=== PATIENT | female | born 1960 | race Caucasian/White ===

== ENCOUNTER → 2016-10-07 | Outpatient (CLI) | payer OTHER ==
[~2016-10-07] MED LIST: LISI2.5T59 PO
--- NOTE | 2016-10-07 10:01 | PN ---
Date/Time of Note Date/Time of Note DATE: 10/07/16 TIME: 09:55 24 hour Interval Summary The patient presents today for a follow-up evaluation on her bilateral knees. We last saw her about 6 months ago at which time she underwent bilateral Monovisc injections she has been having good symptomatic relief and is here today for repeat injections. She denies any adverse reactions from her previous injection. She continues to have bilateral knee pain and discomfort with ambulation. She denies any fevers chills erythema or warmth. She is here today for bilateral Monovisc injections. Physical Exam On exam today, she is alert and oriented 4, and in no acute distress. She walks with a normal gait. Exam of bilateral knees demonstrates 2+ patellofemoral crepitus. Varus and valgus forces are stable. There is no erythema or warmth noted. Range of motion is 0-120. There is no tenderness along the medial or lateral joint lines. There is tenderness bilaterally along the medial and lateral patellar facets. Compartments are otherwise soft. She is neurovascularly intact distally. VTE Prophylaxis VTE Prophylaxis Intervention: ambulation Lines/Catheters IV Catheter Type: Rubi in Place: No Assessment/Plan Chief Complaint/Hosp Course Bilateral knee osteoarthritis Problems: Assessment/Plan The patient underwent bilateral Monovisc injections to her knees today successfully. She was advised to modify her activity, take anti-inflammatories , and apply ice to her knees. We will see her back on an as-needed basis. She is to call the office ahead of time if she would like to repeat the injections. She understands that at some point she needs to consider surgical intervention. The procedure was fully explained to the patient and informed consent was obtained prior to the start of procedure. There was prepped and draped in sterile fashion using Betadine. Local anesthesia was achieved using ethyl chloride to anesthetize the superolateral aspect of bilateral knees. 4 cc of Monvisc was injected intra-articularly to bilateral knees. The patient tolerated the procedure well. A sterile bandage was applied. All questions and concerns were addressed at the time of procedure. Medications Medications Home Meds Reported Medications Lisinopril* (Lisinopril*) Unknown Strength Tablet, PO DAILY, TAB 11/19/14 SHANE JONES PA-C Oct 07, 2016 10:00
== END | disposition home or self-care (01) ==
LOC: HKI 09:02
PROVIDERS: ATTEND Orthopaedic Surgery
DX: M17.0 Bilateral primary osteoarthritis of knee (principal)

== ENCOUNTER 2017-02-24 10:15 | Emergency (ER) | payer OTHER ==
[~2017-02-24] VITALS: Wt 93.5 kg
[2017-02-24] MEDS ORDERED: ONDANSETRON 4 MG INJ IV STA (11:10)
[2017-02-24] MEDS ORDERED: KETOROLAC 30 MG INJ IV STA (11:10)
[2017-02-24 11:41] LABS: ADD UMIC NO; UR ASCORBIC ACID NEGATIVE (NEGATIVE); UR BILIRUBIN (Dip) NEGATIVE (NEGATIVE); UR BLOOD (Dip) NEGATIVE (NEGATIVE); UR CLARITY CLEAR (CLEAR); UR COLOR STRAW (YELLOW); UR GLUCOSE (Dip) NEGATIVE (NEGATIVE); UR KETONES (Dip) NEGATIVE (NEGATIVE); UR LEUKOCYTE ESTERASE (Dip) NEGATIVE Leu/ul (NEGATIVE); UR NITRITE (Dip) NEGATIVE (NEGATIVE); UR SPECIFIC GRAVITY (Dip) 1.015 (1.003-1.030); UR TOTAL PROTEIN (Dip) NEGATIVE (NEGATIVE); UR UROBILINOGEN (Dip) NEGATIVE (NEGATIVE)
[2017-02-24 11:51] LABS: BASOPHILS % 0.6 % (0.0-2.0); EOSINOPHILS # 0.2 10^3/ul (0.0-0.5); EOSINOPHILS % 4.9 % (0.0-7.0); HEMATOCRIT 36.5 % (37.0-47.0); HEMOGLOBIN 12.4 g/dl (12.0-16.0); LYMPHOCYTES # 1.4 10^3/ul (0.8-2.9); LYMPHOCYTES % 29.4 % (15.0-51.0); MEAN CORPUSCULAR HEMOGLOBIN 29.5 pg (29.0-33.0); MEAN CORPUSCULAR VOLUME 86.7 fl (82.0-101.0); MEAN PLATELET VOLUME 10.4 fl (7.4-10.4); MONOCYTE # 0.4 10^3/ul (0.3-0.9); MONOCYTES % 8.4 % (0.0-11.0); NEUTROPHIL # 2.8 10^3/ul (1.6-7.5); NEUTROPHILS % 56.5 % (39.0-77.0); PLATELET COUNT 255 10^3/UL (140-415); RED BLOOD COUNT 4.21 10^6/ul (4.20-5.40); RED CELL DISTRIBUTION WIDTH 12.6 % (11.5-14.5); WHITE BLOOD COUNT 4.9 10^3/ul (4.8-10.8)
--- NOTE | 2017-02-24 12:06 | RADRPT ---
PROCEDURE: XR Chest. CLINICAL INDICATION: Chest pain status post fall TECHNIQUE: AP Portable chest. COMPARISON: 08/01/2013 chest x-ray FINDINGS: The soft tissues and bones are normal. No focal infiltrates, masses, or effusions are noted. The m ediastinum and heart are remarkable for mild vascular calcifications of the thoracic aorta with norm al size heart.. No pneumothorax is present. IMPRESSION: 1. No radiographic evidence for acute cardiopulmonary disease 2. Mild atherosclerotic vascular disease RPTAT: HDC .Rosa Egan MD, MD Date Time Electronically viewed and signed by .Rosa Egan MD, MD on 02/24/2017 12:06 .C/
--- NOTE | 2017-02-24 12:06 | RADRPT ---
PROCEDURE: XR Lumbar Spine. CLINICAL INDICATION: Status post fall. Back pain. Trauma. TECHNIQUE: X-ray of the lumbar spine were performed including AP, lateral, and coned L5-S1 views w as performed. COMPARISON: No prior studies are available for comparison. FINDINGS: SEGMENTATION: There are 5 non-rib bearing lumbar vertebral bodies. LORDOSIS: Within normal limits. VERTEBRAL BODY HEIGHTS: Maintained without evidence of compression fracture. There is an age indeter minate but probably chronic anterior superior L2 endplate fracture. ALLIGNMENT: There is trace retrolisthesis of L1-L2. DISCS: There is moderate disc space narrowing at L1-L2. OSSEOUS STRUCTURES: There is no destructive osseous lesion. SACRUM: The bilateral sacroiliac joints are intact. IMPRESSION: Age indeterminate but probably chronic anterior superior L2 endplate fracture. No evidence of compression fracture. Trace retrolisthesis of L1-L2. Further findings as detailed above. Consider noncontrast CT of the lumbar spine given history of trauma as clinically warranted. RPTAT: HVF .Maxx Womack MD, Date Time Electronically viewed and signed by .Maxx Womack MD, on 02/24/2017 12:06 .F/
[2017-02-24 12:14] LABS: ALBUMIN/GLOBULIN RATIO 1.14; BILIRUBIN,INDIRECT 0.2 mg/dl (0-1.1); BILIRUBIN,TOTAL 0.2 mg/dl (0.2-1.3); CALCIUM 9.9 mg/dl (8.4-10.2); CREATININE 0.87 mg/dl (0.44-1.00); POTASSIUM 3.9 mmol/L (3.5-5.1); TOTAL PROTEIN 7.5 g/dl (6.1-8.1)
--- NOTE | 2017-02-24 12:25 | RADRPT ---
PROCEDURE: Right upper quadrant ultrasound CLINICAL INDICATION: Abdominal pain TECHNIQUE: Multiple real-time images were acquired of the patient's abdomen and right retroperiton eum utilizing a high resolution transducer. COMPARISON: None FINDINGS: The liver is increased in echogenicity and measures 18.9 cm. No focal hepatic masses are seen. The gallbladder is physiologically distended. There is stones and sludge identified within the gallbla dder. There is borderline thickening of the gallbladder wall. No pericholecystic fluid is seen. The intra and extrahepatic bile ducts are normal in caliber. The common bile duct measures 5.3 mm. Midline images demonstrate the pancreas head to be normal in echogenicity without obvious inflammato ry change. The body and tail are suboptimally seen. Survey views of the right kidney demonstrate no evidence of hydronephrosis or renal calculi. The ri ght kidney measures 11.7 cm. IMPRESSION: 1. Cholelithiasis. There is borderline thickening of the gallbladder wall. No pericholecystic fluid seen. 2. No biliary duct dilatation. 3. Fatty change of the liver with focal areas of sparing in the gallbladder fossa. . 4. Pancreas suboptimally seen RPTAT: HH .Pradeep Benitez MD, Date Time Electronically viewed and signed by .Pradeep Benitez MD, on 02/24/2017 12:24 .W/
--- NOTE | 2017-02-24 13:13 | RADRPT ---
PROCEDURE: CT Lumbar Spine. CLINICAL INDICATION: Back pain. Status post fall. TECHNIQUE: Noncontrast CT of the lumbar spine was performed with multiplanar reformatted images gen erated from the axial acquired data. The administered radiation dose was CTDI vol = 37.1 mGy, DLP = 1176.17 mGy-cm. One or more of the following dose reduction techniques were used: Automated exposur e control, Adjustment of the mA and/or kV according to patient size, or Use of iterative reconstruct ion technique. DICOM images are available. COMPARISON: There are no similar studies submitted for comparison. X-ray of the lumbar spine from e same day. FINDINGS: There is normal lumbar lordosis. The vertebral body heights are maintained. There is no destructive osseous lesion. There is no acute fracture. There is an ossific fragment with mild deformity of the anterior superi or L2 endplate which is chronic. T12-L1 : There is mild disc space narrowing. There is 1 mm broad-based disc bulge and mild bilateral facet arthropathy without spinal canal or bilateral foraminal stenosis. L1-L2 : There is moderate to severe disc space narrowing. There is trace retrolisthesis with a 2 mm broad-based disc bulge with mild bilateral facet arthropathy without spinal canal stenosis. There is mild to moderate right without left foraminal stenosis. L2-L3 : There is a 2 mm broad-based disc bulge and mild bilateral facet arthropathy and ligamentum f lavum infolding without canal stenosis. There is mild to moderate right without left foraminal steno sis. L3-L4 : There is a 2 mm broad-based disc bulge and mild bilateral facet arthropathy without spinal c anal stenosis. There is mild to moderate bilateral foraminal stenosis. L4-L5 : There is a 2 mm circumferential disc bulge with moderate bilateral facet arthropathy without spinal canal stenosis. There is moderate right without left foraminal stenosis. L5-S1 : There is mild disc space narrowing. There is a 2 mm circumferential disc bulge asymmetric to the left with moderate bilateral facet arthropathy without spinal canal stenosis. There is mild lef t without right foraminal stenosis. The sacroiliac joints are intact. Gallstones are noted. IMPRESSION: 1. No acute fracture. 2. Ossific fragment with mild deformity of the anterior superior L2 endplate which is chronic. 3. Mild to moderate degenerative changes without nerve root impingement. 4. Cholelithiasis. Further findings as detailed above. RPTAT: HVF .Maxx Womack MD, Date Time Electronically viewed and signed by .Maxx Womack MD, on 02/24/2017 13:13 .F/
[2017-02-24] MEDS ORDERED: TRAM50TA2 PO (13:25)
[2017-02-24] MEDS ORDERED: IBUP-1542 PO (13:25)
--- NOTE | 2017-02-24 13:33 | ERD ---
ER Documentation Chief Complaint Chief Complaint UPPER BACK PAIN S/P [facility] FALL LAST NIGHT, NO KO HPI 56-year-old female mechanical fall last night and fell backwards on her upper back. She felt okay yesterday but today is having worsening upper back pain. She denies any shortness of breath, hemoptysis. Patient is also having anterior abdominal discomfort which she feels is related to her back pain. She has history of gallstones is a concern her gallstones may be causing her back pain. She denies any vomiting, fevers, urinary complaints. ROS All systems reviewed and are negative except as per history of present illness. Medications Home Meds Active Scripts Ibuprofen* (Motrin*) 600 Mg Tab, 600 MG PO Q6, #20 TAB Prov:CHERELLE MAYS MD 02/24/17 Tramadol HCl (Tramadol HCl) 50 Mg Tablet, 50 MG PO Q4 Y for PAIN, #20 TAB Prov:CHERELLE MAYS MD 02/24/17 Reported Medications Lisinopril* (Lisinopril*) Unknown Strength Tablet, PO DAILY, TAB 11/19/14 Allergies Allergies: Coded Allergies: acetaminophen (Verified Allergy, Unknown, 02/24/17) codeine (Verified Allergy, Unknown, 02/24/17) hydrocodone (Verified Allergy, Unknown, 02/24/17) PMhx/Soc History of Surgery: Yes (APPY, PARTIAL HYST, FIBROIDS, UTERINE RECONST, R BREAST LUMPECTOMY) Anesthesia Reaction: No Hx Neurological Disorder: No Hx Respiratory Disorders: No Hx Cardiac Disorders: Yes (HTN ) Hx Psychiatric Problems: No Hx Miscellaneous Medical Probl: No Hx Alcohol Use: Yes (OCCASIONALLY) Hx Substance Use: No Hx Tobacco Use: Yes Smoking Status: Never smoker Physical Exam Vitals Vital Signs Date Time Temp Pulse Resp B/P Pulse Ox O2 Delivery O2 Flow Rate FiO2 02/24/17 10:18 98.3 81 17 159/75 98 Physical Exam Const: [], Uncomfortable but no apparent distress. Head: Atraumatic Eyes: Normal Conjunctiva ENT: Normal External Ears, Nose and Mouth. Neck: Full range of motion..~ No meningismus. Resp: Clear to auscultation bilaterally Cardio: Regular rate and rhythm, no murmurs Abd: Soft, non tender, non distended. Normal bowel sounds Skin: No petechiae or rashes Back: No midline or flank tenderness or tenderness primarily in the right L2- L3 area. Some mild right upper quadrant tenderness present deformities, skin changes. Ext: No cyanosis, or edema Neur: Awake and alert Psych: Normal Mood and Affect Result Diagram: 02/24/17 1120 02/24/17 1120 Results 24 hrs Laboratory Tests Test 02/24/17 11:15 02/24/17 11:20 Urine Color STRAW Urine Clarity CLEAR Urine pH 6.0 Urine Specific [place] 1.015 Urine Ketones NEGATIVEmg/dL Urine Nitrite NEGATIVEmg/dL Urine Bilirubin NEGATIVEmg/dL Urine Urobilinogen NEGATIVEmg/dL Urine Leukocyte Esterase NEGATIVELeu/ul Urine Hemoglobin NEGATIVEmg/dL Urine Glucose NEGATIVEmg/dL Urine Total Protein NEGATIVEmg/dl White Blood Count 4.910^3/ul Red Blood Count 4.2110^6/ul Hemoglobin 12.4g/dl Hematocrit 36.5% Mean Corpuscular Volume 86.7fl Mean Corpuscular Hemoglobin 29.5pg Mean Corpuscular Hemoglobin Concent 34.0g/dl Red Cell Distribution Width 12.6% Platelet Count 99327^3/UL Mean Platelet Volume 10.4fl Neutrophils % 56.5% Lymphocytes % 29.4% Monocytes % 8.4% Eosinophils % 4.9% Basophils % 0.6% Nucleated Red Blood Cells % 0.0/100WBC Neutrophils # 2.810^3/ul Lymphocytes # 1.410^3/ul Monocytes # 0.410^3/ul Eosinophils # 0.210^3/ul Basophils # 0.010^3/ul Nucleated Red Blood Cells # 0.010^3/ul Sodium Level 143mmol/L Potassium Level 3.9mmol/L Chloride Level 104mmol/L Carbon Dioxide Level 28mmol/L Anion Gap 15 Blood Urea Nitrogen 25mg/dl Creatinine 0.87mg/dl Glucose Level 101mg/dl Calcium Level 9.9mg/dl Total Bilirubin 0.2mg/dl Direct Bilirubin 0.00mg/dl Indirect Bilirubin 0.2mg/dl Aspartate Amino Transf (AST/SGOT) 22IU/L Alanine Aminotransferase (ALT/SGPT) 47IU/L Alkaline Phosphatase 56IU/L Total Protein 7.5g/dl Albumin 4.0g/dl Globulin 3.50g/dl Albumin/Globulin Ratio 1.14 Lipase 200U/L Current Medications Medications (Trade) Dose Ordered Sig/Mert Route PRN Reason Start Time Stop Time Status Last Admin Dose Admin Ondansetron HCl (Zofran Inj) 4 mg ONCE STAT IV 02/24/17 11:10 02/24/17 11:12 DC 02/24/17 11:23 Ketorolac Tromethamine (Toradol) 30 mg ONCE STAT IV 02/24/17 11:10 02/24/17 11:12 DC 02/24/17 11:22 Procedures/MDM Right upper quadrant ultrasound shows gallstones with borderline bladder wall thickening but no absolute signs of cholecystitis. CBC and CMP and lipase showed no acute abnormalities. Urine is negative for infection, glucose, blood. Chest X-ray 1V Interpreted by me: Soft Tissue: No acute abnormalities Bones: No acute abnormalities Mediastinum/Cardiac Silhouette/Lungs: [No acute abnormalities] impression have normal 1 view chest x-ray X-ray LS-Spine 3V Interpreted by me: Bones: Possible endplate fracture of L2 Joints: [No dislocation] Foreign body: [None]. Possible endplate fracture of L2. Uncertain whether old or new. CT recommended. CT shows likely chronic appearing C2 endplate fracture. Without appreciable acute abnormalities. Patient was given Toradol 30 mg IV was stable amatory throughout the ED course. Presents with upper back pain mild abdominal pain after mechanical fall yesterday without evidence of cholecystitis, acute fracture, dislocation, choledocholithiasis, acute abdomen, UTI or additional emergent causes of presenting complaints. She will treated with tramadol and ibuprofen and further observation at home primary care follow-up and return precautions. The patient was stable with no new complaints during the ER course. Clinically, there is no current evidence to suggest meningitis, sepsis, acute abdomen, pneumonia, acute coronary syndrome, pulmonary embolism, or any other emergent condition appearing to require further evaluation or hospitalization. The patient should certainly return for any new or worsening symptoms per the aftercare instructions. They should otherwise follow-up with her primary care doctor for reevaluation this week. In the area of possible fracture seen in the area of patient's pain CT lumbar spine was done which shows a chronic appearing Departure Diagnosis: Primary Impression: Injury of back Encounter type: initial encounter Qualified Code: S39.92XA - Injury of back , initial encounter Condition: Stable Patient Instructions: Gallstones, Back Sprain/Strain Additional Instructions: Examinations normal today. Is possibly an old fracture fragment seen in area of pain but nothing new. Recheck for new or worsening symptoms or primary care doctor. CHERELLE MAYS MD Feb 24, 2017 13:33
== END 2017-02-24 14:13 | disposition home or self-care (01) ==
LOC: FTE 10:15
DX: S39.92XA Unspecified injury of lower back, initial encounter (principal); I10 Essential (primary) hypertension; W18.39XA Other fall on same level, initial encounter; Y92.9 Unspecified place or not applicable
CPT/HCPCS: 71010; 72100; 72131; 76705; 80053; 81003; 83690; 85025; J1885; J2405; 36415; 96374; 96375

== ENCOUNTER 2018-09-07 05:30 | Day surgery (SDC) | payer OTHER ==
[~2018-09-07] VITALS: Ht 157.5 cm; Wt 90.9 kg
[2018-09-07] VITALS (14 sets, daily range): BP systolic 112–131; BP diastolic 59–79; PULSE 64–75; RESP 14–26; Ht 157.5 cm; Wt 90.9 kg
[~2018-09-07 05:30] MED LIST changes: +CEFAZOLIN 2 GM/50 ML (PMX) 50 ML IVPB ONE; +IBUP-1542 PO; +SOD CHLORIDE 0.9% 1,000 ML IV SCH; +TRAM50TA2 PO
[2018-09-07] MEDS ORDERED: HYDR25TA6 PO (06:35)
[2018-09-07] MEDS ORDERED: LOSA100T15 PO (06:35)
[2018-09-07] MEDS ORDERED: AMOX500C2 PO (06:37)
[2018-09-07] MEDS ORDERED: SEVOFLURANE 15 MIN ONE (07:00)
[2018-09-07] MEDS ORDERED: BUPIVACAINE 0.25% (MPF) 30 ML INJ ONE (07:43)
--- NOTE | 2018-09-07 08:04 | PREAC ---
Date/Time of Note Date/Time of Note DATE: 09/07/18 TIME: 08:02 Anesthesia Eval and Record Evaluation Time Pre-Procedure Interview DATE: 09/07/18 TIME: 08:02 Age 57 Sex female NPO: 8 hrs Preoperative diagnosis Cholelithiasis Planned procedure Laparoscopic Cholecystectomy Past Medical History Past Medical History: Includes Cardio: HTN Pulm: Smoking Hx GI: Obesity Surgery & Anesthesia Issues No known issue Meds Anticoagulation: No Beta Julianne within 24 hr: No Reason Beta Julianne not given: Pt. not on B-Julianne Active Scripts Ibuprofen* (Motrin*) 600 Mg Tab, 600 MG PO Q6, #20 TAB Prov:CHERELLE MAYS MD 02/24/17 Tramadol HCl (Tramadol HCl) 50 Mg Tablet, 50 MG PO Q4 PRN for PAIN, #20 TAB Prov:CHERELLE MAYS MD 02/24/17 Reported Medications Amoxicillin* (Amoxicillin*) 500 Mg Cap, 500 MG PO Q8, #30 CAP 09/07/18 Hydrochlorothiazide* (Hydrochlorothiazide*) 25 Mg Tab, 25 MG PO DAILY, #30 TAB 09/07/18 Losartan Potassium* (Losartan Potassium*) 100 Mg Tablet, 100 MG PO DAILY, TAB 09/07/18 Lisinopril* (Lisinopril*) Unknown Strength Tablet, PO DAILY, TAB 11/19/14 Current Medications Sodium Chloride 1,000 ml @ 75 mls/hr [id number] IV Last administered on 09/07/18at 06:21; Admin Dose 75 MLS/HR; Start 09/07/18 at 05:30; Stop 09/07/18 at 11:30 Meds reviewed: Yes Allergies Coded Allergies: acetaminophen (Verified Allergy, Unknown, 02/24/17) codeine (Verified Allergy, Unknown, 02/24/17) hydrocodone (Verified Allergy, Unknown, 02/24/17) Allergies Reviewed: Yes Labs/Studies Labs Reviewed: Reviewed by anesthesiologist test: N/A Studies: ECG (n/a), CXR (n/a) Pre-procedure Exam Last vitals Vital Signs Date Temp Pulse Resp B/P (MAP) Pulse Ox O2 O2 Flow FiO2 Time Delivery Rate 09/07/18 98.1 72 18 128/72 97 Room Air 06:54 (90) Airway: Adequate mouth opening, Adequate thyromental dist Mallampati: Mallampati II Teeth: Normal Lung: Normal Heart: Normal ASA Physical Status ASA physical status: 2 Emergency: None Planned Anesthetic General/MAC: ETT Nerve block: TAP (bilateral) Planned Pain Management Single shot nerve block, Parenteral pain med Pre-operative Attestations Prior to commencing anesthesia and surgery, the patient was re-evaluated, there was verification of: *The patient's identity *The results of appropriate recent lab work and preoperative vital signs *The above evaluation not changing prior to induction *Anesthetic plan, risk benefits, alternative and complications discussed with patient/family; questions answered; patient/family understands, accepts and wishes to proceed. JOSE NEVES MD Sep 07, 2018 08:04
[2018-09-07] MEDS ORDERED: ROCURONIUM 50 MG INJ ONE (08:10)
[2018-09-07] MEDS ORDERED: FENTAnyl 50 MCG/ML VIAL ONE (08:10)
[2018-09-07] MEDS ORDERED: PROPOFOL 20 ML ONE (08:10)
[2018-09-07] MEDS ORDERED: CEFAZOLIN 1 GM INJ ONE (08:10)
[2018-09-07] MEDS ORDERED: MIDAZOLAM 1 MG/ML 2 ML INJ ONE (08:10)
[2018-09-07] MEDS ORDERED: ROPIVACAINE 0.5 % 30 ML VIAL ONE (08:11)
[2018-09-07] MEDS ORDERED: MEPERIDINE 25 MG INJ IV PRN (08:30)
[2018-09-07] MEDS ORDERED: ONDANSETRON 4 MG INJ IV PRN (08:30)
[2018-09-07] MEDS ORDERED: DIPHENHYDRAMINE 50 MG INJ IV PRN (08:30)
[2018-09-07] MEDS ORDERED: HYDROmorphONE 1 MG/5 ML IV SYRINGE IV PRN ×2 (08:30)
[2018-09-07] MEDS ORDERED: EPHEDrine 25 MG/5 ML SYG IV PRN (08:30)
[2018-09-07] MEDS ORDERED: hydrALAzine 20 MG INJ IV PRN (08:30)
[2018-09-07] MEDS ORDERED: METOCLOPRAMIDE 10 MG INJ IV PRN (08:30)
[2018-09-07] MEDS ORDERED: LABETALOL HCL 20MG INJ IV PRN (08:30)
[2018-09-07] MEDS ORDERED: FENTAnyl 50 MCG/ML VIAL IV PRN ×3 (08:30)
[2018-09-07] MEDS ORDERED: METOCLOPRAMIDE 10 MG INJ ONE (08:49)
[2018-09-07] MEDS ORDERED: DEXAMETHASONE 4 MG/ML 5 ML INJ ONE (08:49)
[2018-09-07] MEDS ORDERED: KETOROLAC 30 MG INJ ONE (08:49)
[2018-09-07] MEDS ORDERED: ONDANSETRON 4 MG INJ ONE (08:49)
[2018-09-07] MEDS ORDERED: SUGAMMADEX SODIUM 200 MG/2 ML VIAL IV ONE (08:49)
[2018-09-07] MEDS ORDERED: IBUPROFEN 800 MG TAB PO ONE (10:00)
--- NOTE | 2018-09-07 10:12 | OPR ---
Date/Time of Note Date/Time of Note DATE: 09/07/18 TIME: 10:09 Operative Report Procedure Date: Sep 07, 2018 Preoperative Diagnosis symptomatic gallstones Postoperative Diagnosis same Operation/Procedure Performed laparoscopic cholecystectomy Surgeon see signature line Tare Weigher none Anesthesia Type: general Estimated Blood Loss: 0 - 10 ml's Transfusion none Specimen gallbladder Grafts/Implants none Complications none Pt Condition Post Procedure: stable Indications This is a 57-year-old female with symptomatic gallstones. She required surgical excision of her gallbladder. Risks alternatives benefits and personal were discussed with the patient. Patient expressed understanding consents to the operation. Procedure Description Patient is taken to the OR and prepped and draped in usual sterile fashion. Surgical time was performed. IV antibiotics given. Infraumbilical transverse incision was made to 15 blade. Dissection with cautery skin onto the fascia. The fascia was grasped with [place]'s and divided with curved [place]caraz scissors. 0 Vicryl U stitch was placed to the fascia. [place] trocar was introduced. Pneumoperitoneum is established. Midepigastric 12 mm optical trochars placed under direct visualization. Right upper quadrant upper flank 5 mm optical trochars were placed under direct visualization. Upon initial inspection the gallbladder appeared thickened and intrahepatic. Initial dome down approach was used to mobilize the gallbladder. This allowed good retraction of the gallbladder laterally and superiorly. [place] graspers were used to dissect out the cystic duct and cystic artery. The critical view was established. The cystic artery was divided to close proximal completion divisions performed laparoscopic scissors. Cystic duct appeared very thickened and was not amenable to clip independent crop consultant. 35 mm echelon vessel stapler was used to divide the cystic duct. The staple line was then reinforced with clips. The gallbladder was retrieved Endo Catch bag. Good hemostasis established in the surgical bed. Surgicel snow was placed in the gallbladder bed for hemostatic augmentation. All ports were removed under direct visualization. 0 Vicryl use this was tied down. Skin is closed and skin maria elena. A tap block was provided by the anesthesiologist. Dry dressings were applied. Yun BROWN Sep 07, 2018 10:12
[2018-09-07] MEDS: HYDROmorphONE 1 MG/5 ML IV SYRINGE IV PRN ×2 (10:22→10:29)
--- NOTE | 2018-09-07 10:30 | PAC ---
Date/Time of Note Date/Time of Note DATE: 09/07/18 TIME: 10:29 Post-Anesthesia Notes Post-Anesthesia Note Last documented vital signs Vital Signs Date Temp Pulse Resp B/P (MAP) Pulse Ox O2 O2 Flow FiO2 Time Delivery Rate 09/07/18 98.5 66 22 128/61 100 Mask 8.0 09:59 (83) 09/07/18 97.9 09:46 Activity: WNL Respiratory function: WNL Cardiovascular function: WNL Mental status: Baseline Pain reasonably controlled: Yes Hydration appropriate: Yes Nausea/Vomiting absent: Yes JOSE NEVES MD Sep 07, 2018 10:30
== END 2018-09-07 12:45 | disposition home or self-care (01) ==
LOC: SDS 05:30
PROVIDERS: ATTEND Surgery
DX: K80.10 Calculus of gallbladder with chronic cholecystitis without obstruction (principal)
CPT/HCPCS: 47562; 88304; J0690; J1100; J1170; J1885; J2250; J2405; J2765; J2795; J3010